=== PATIENT | male | born 1950 | race Caucasian/White ===

== ENCOUNTER 2017-12-17 09:41 | Emergency (ER) | payer MEDICARE, OTHER ==
[~2017-12-17] VITALS: Ht 190.5 cm; Wt 98.9 kg
[2017-12-17] MEDS ORDERED: P MEDS (09:54)
[2017-12-17] MEDS ORDERED: [UNRECOGNIZED DRUG - OTHER] (09:54)
[2017-12-17] MEDS ORDERED: EFFEXOR XR150 MG PO (10:02)
[2017-12-17] MEDS ORDERED: ATORVASTATIN CA40 MG PO (10:02)
[2017-12-17] MEDS ORDERED: XANAX1 MG PO (10:02)
[2017-12-17] MEDS ORDERED: COZAAR 25 MG TA25 M1 PO (10:03)
[2017-12-17] MEDS ORDERED: NORCO 10-325 T1 EACH PO ×2 (10:03→10:04)
[2017-12-17] MEDS ORDERED: CARVEDILOL12.5 MG PO (10:03)
[2017-12-17] MEDS ORDERED: REMERON15 MG PO (10:05)
[2017-12-17 10:29] LABS: HEMATOCRIT 46.9 % (42.0-52.0); HEMOGLOBIN 16.2 gm/dL (14.0-18.0); MCH 30.5 pg (26.0-34.0); MCHC 34.5 g/dL (28.0-37.0); MCV 88.5 fL (80.0-100.0); NUCLEATED RBCS 0 /100WBC; PLATELET COUNT* 260 thou/uL (150-400); RDW-CV 13.8 % (10.5-14.5); WBC 6.6 thou/uL (4.0-11.0)
[2017-12-17 10:36] LABS: ANION GAP 5 mmol/L (7-16); BUN 17 mg/dL (7-18); CALCIUM 8.5 mg/dL (8.5-10.1); CHLORIDE 105 mmol/L (98-107); CO2 27 mmol/L (21-32); CREATININE 1.4 mg/dL (0.6-1.3); GLUCOSE 144 mg/dL (70-99); SODIUM 137 mmol/L (136-145)
[2017-12-17 10:43] LABS: ALBUMIN 3.5 g/dL (3.4-5.0); ALKALINE PHOSPHATASE 93 U/L (46-116); SGOT 16 U/L (15-37); SGPT 22 U/L (30-65); TOTAL BILIRUBIN 0.6 mg/dL (<0.1-1.0); TOTAL PROTEIN 7.3 g/dL (6.4-8.2); TROPONIN-I LEVEL <0.06 ng/mL (<0.06)
[2017-12-17 10:52] LABS: ABSOLUTE BASOPHILS 0.1 thou/uL (0.0-0.2); ABSOLUTE LYMPHOCYTES 0.7 thou/uL (0.8-5.3); ABSOLUTE MONOCYTES 0.7 thou/uL (0.0-1.2); ABSOLUTE NEUTROPHILS 5.1 thou/uL (1.6-8.1); ANISOCYTOSIS 1+; PLATELET ESTIMATE ADEQUATE; POIKILOCYTOSIS 1+
[2017-12-17] MEDS ORDERED: AMOXICILLIN875 MG PO (11:42)
[2017-12-17 12:27] VITALS: BP 115/71
--- NOTE | 2017-12-17 14:37 | EKG ---
[place] [address] ELECTROCARDIOGRAM REPORT Name: PÉREZAdriannaJENNIFER Frederic Room: [facility]#: [id number] Admission: 12/17/17 Attend Phys: Discharge: 12/17/17 Date of : 50 Report #: [id number] THIS REPORT FOR: //name// [facility] ED Test Date: 2017-12-17 Test Time: 09:58:16 Pat Name: JENNIFER BERNABE Department: Room: Gender: Design Drafter: Xiomy PATEL : 1950 Requested By: Jacquie Reyes Order Number: [id number] Clive MD: Juan Luis Mc Measurements Intervals [place] Rate: 70 P: 29 W[place]: 198 QRS: -48 QRSD: 98 T: 14 QT: 406 QTc: 439 Interpretive Statements Sinus arrhythmia RSR' in V1 or V2, probably normal variant Inferior infarct, old possible No previous ECG available for comparison Electronically Signed On 12-17-2017 14:37:26 CDT by Juan Luis Mc [email or web address] <ELECTRONICALLY SIGNED> By: Juan Luis Mc MD, [facility] 12/17/17 1437 Juan Luis Mc MD, [facility] /EPI
== END 2017-12-17 12:28 | disposition home or self-care (01) ==
LOC: M.ERS 09:41
PROVIDERS: Nurse Practitioner Family
DX: S01.81XA Laceration without foreign body of other part of head, initial encounter (principal); S01.511A Laceration without foreign body of lip, initial encounter; J01.00 Acute maxillary sinusitis, unspecified; I10 Essential (primary) hypertension; G89.29 Other chronic pain; W18.00XA Striking against unspecified object with subsequent fall, initial encounter; Y93.89 Activity, other specified; Y92.89 Other specified places as the place of occurrence of the external cause; Y99.8 Other external cause status

== ENCOUNTER → 2018-02-07 | Outpatient (CLI) | payer MEDICARE, OTHER ==
[~2018-02-07] MED LIST: AMOXICILLIN875 MG PO; ATORVASTATIN CA40 MG PO; CARVEDILOL12.5 MG PO; COZAAR 25 MG TA25 M1 PO; EFFEXOR XR150 MG PO; NORCO 10-325 T1 EACH PO; P MEDS; REMERON15 MG PO; XANAX1 MG PO; [UNRECOGNIZED DRUG - OTHER]
== END ==
LOC: M.ULTRA 09:54
DX: R55 Syncope and collapse (principal); R01.1 Cardiac murmur, unspecified